=== PATIENT | female | born 1935 ===

== ENCOUNTER → 2016-06-23 | Outpatient (CLI) | payer MEDICARE, OTHER ==
[2016-06-23 15:57] LABS: CPK 97 IU/L (21-215); MAGNESIUM 1.9 mg/dL (1.3-2.6)
== END | disposition disaster alternative care site (69) ==
LOC: LFPA 15:38
PROVIDERS: Nurse Practitioner Family
DX: Z53.8 Procedure and treatment not carried out for other reasons (principal); R07.9 Chest pain, unspecified